=== PATIENT | female | born 1995 | race Hispanic/Latino ===

== ENCOUNTER 2017-03-02 09:45 | Emergency (ER) | payer MEDICAID, OTHER ==
[2017-03-02 10:43] VITALS: BP 109/58; PULSE 71; RESP 18; TEMP 99; O2SAT 98; BMI 29.2
--- NOTE | 2017-03-02 11:08 | ED PDOC ---
Arrival/HPI - General Chief Complaint: Suture/Staple Removal Time Seen by Provider: 03/02/17 11:05 Historian: Patient - History of Present Illness Narrative History of Present Illness (Text): 03/02/17 11:05 This 21 yo female present to this ED for staple removal. Patient denies new symptoms. Context: Home Past Medical History - Provider Review Nursing Documentation Reviewed: Yes - Cardiac Hx Cardiac Disorders: No Hx Hypertension: No - Pulmonary Hx Tuberculosis: No - Neurological Hx Neurological Disorder: Yes HX Cerebrovascular Accident: No Hx Seizures: Yes - HEENT Hx HEENT Disorder: No - Renal Hx Renal Disorder: No - Endocrine/Metabolic Hx Endocrine Disorders: Yes Hx Hypothyroidism: Yes - Hematological/Oncological Hx Cancer: No - Integumentary Hx Dermatological Disorder: No - Musculoskeletal/Rheumatological Hx Musculoskeletal Disorders: No - Gastrointestinal Hx Gastrointestinal Disorders: No - Genitourinary/Gynecological Hx Sexually Transmitted Diseases: No - Psychiatric Hx Psychophysiologic Disorder: No Hx Substance Use: No - Surgical History Hx Section: Yes - Anesthesia Hx Anesthesia: Yes Hx Anesthesia Reactions: No Hx Malignant Hyperthermia: No Family/Social History - Physician Review Nursing Documentation Reviewed: Yes Family/Social History: No Known Family HX Smoking Status: Light Smoker < 10 Cigarettes Daily Hx Alcohol Use: Yes (1/5 of [employer]) Frequency of alcohol use: Socially Hx Substance Use: No Allergies/Home Meds Allergies/Adverse Reactions: Allergies levothyroxine (generic only) Allergy (Uncoded 03/02/17 10:42) RASH Home Medications: Home Meds Medication Instructions Recorded Confirmed Levothyroxine [Synthroid] 200 mcg PO DAILY 08/25/15 03/02/17 Review of Systems - Review of Systems Constitutional: Normal. absent: Fatigue, Weight Change, Fevers, Night Sweats Eyes: Normal ENT: Normal Respiratory: Normal Cardiovascular: Normal Gastrointestinal: Normal Genitourinary Female: Normal Musculoskeletal: Normal Skin: Other (Staple removal) Neurological: Normal Endocrine: Normal Hemo/Lymphatic: Normal Psychiatric: Normal Physical Exam Vital Signs Temp Pulse Resp BP Pulse Ox 03/02/17 10:37 99 F 71 18 109/58 L 98 Temperature: Afebrile Blood Pressure: Normal Pulse: Regular Respiratory Rate: Normal Appearance: Positive for: Well-Appearing, Non-Toxic, Comfortable Pain Distress: None Mental Status: Positive for: Alert and Oriented X 3 - Systems Exam Head: Present: Normocephalic, Other (Right vertex scalp miladis x 4 . No erythema, discharge, tenderness, or dehiscense) Pupils: Present: PERRL Extroacular Muscles: Present: EOMI Conjunctiva: Present: Normal Mouth: Present: Moist Mucous Membranes Neck: Present: Normal Range of Motion Upper Extremity: Present: Normal Inspection, Normal ROM Lower Extremity: Present: Normal Inspection, Normal ROM Neurological: Present: GCS=15, CN II-XII Intact, Speech Normal, Motor Func Grossly Intact, Normal Sensory Function, Normal Cerebellar Funct, Gait Normal, Memory Normal Skin: Present: Warm, Dry, Normal Color. No: Rashes Psychiatric: Present: Alert, Oriented x 3 Medical Decision Making ED Course and Treatment: 03/02/17 11:08 Patient came for staple removal. Under sterile technique, 4 miladis were removed without complication. wound is healing well, no discharge, redness or tenderness. Re-evaluation Time: 11:08 Reassessment Condition: Re-examined, Improved Disposition/Present on Arrival - Present on Arrival Any Indicators Present on Arrival: No History of DVT/PE: No History of Uncontrolled Diabetes: No Urinary Catheter: No History of Decub. Ulcer: No History Surgical Site Infection Following: None - Disposition Have Diagnosis and Disposition been Completed?: Yes Diagnosis: Encounter for staple removal, Encounter for wound re-check Disposition: HOME/ ROUTINE Disposition Time: 11:09 Patient Plan: Discharge Patient Problems: Current Active Problems Problem Status Onset Encounter for staple removal Acute Encounter for wound re-check Acute Condition: GOOD Discharge Instructions (ExitCare): Stitches Removal (ED) Additional Instructions: Call private doctor as needed for follow up visit. Return to emergency if wound becomes painful, swelling or discharge Referrals: Ngozi Maradiaga DO [Primary Care Provider] - Follow up with primary Forms: WORK NOTE
== END 2017-03-02 11:22 | disposition home or self-care (01) ==
LOC: ED 09:45
DX: Z48.02 Encounter for removal of sutures (principal); Z51.89 Encounter for other specified aftercare

== ENCOUNTER 2017-04-13 03:36 | Emergency (ER) | payer MEDICAID, OTHER ==
[2017-04-13 03:36] VITALS: BMI 29.2
[2017-04-13 03:37] VITALS: TEMP 98.7
--- NOTE | 2017-04-13 04:15 | ED PDOC ---
Arrival/HPI - General Chief Complaint: Alcohol Ingestion Time Seen by Provider: 04/13/17 03:42 Historian: Patient - History of Present Illness Narrative History of Present Illness (Text): 04/13/17 03:56 21 year old female, whose past medical history includes hypothyroidism, was brought by EMS to the emergency department due to alcohol abuse and anxiety tonight. HPI and ROS limited due to patient being intoxicated, yelling, and uncooperative. Time/Duration: Prior to Arrival Symptom Onset: Gradual Symptom Course: Unchanged Context: Street Past Medical History - Provider Review Nursing Documentation Reviewed: Yes - Cardiac Hx Cardiac Disorders: No Hx Hypertension: No - Pulmonary Hx Tuberculosis: No - Neurological Hx Neurological Disorder: Yes HX Cerebrovascular Accident: No Hx Seizures: Yes - HEENT Hx HEENT Disorder: No - Renal Hx Renal Disorder: No - Endocrine/Metabolic Hx Endocrine Disorders: Yes Hx Hypothyroidism: Yes - Hematological/Oncological Hx Cancer: No - Integumentary Hx Dermatological Disorder: No - Musculoskeletal/Rheumatological Hx Musculoskeletal Disorders: No - Gastrointestinal Hx Gastrointestinal Disorders: No - Genitourinary/Gynecological Hx Sexually Transmitted Diseases: No - Psychiatric Hx Psychophysiologic Disorder: No Hx Substance Use: No - Surgical History Hx Section: Yes - Anesthesia Hx Anesthesia: Yes Hx Anesthesia Reactions: No Hx Malignant Hyperthermia: No Family/Social History - Physician Review Nursing Documentation Reviewed: Yes Family/Social History: No Known Family HX Smoking Status: Light Smoker < 10 Cigarettes Daily Hx Alcohol Use: Yes (1/5 of vodka tonight) Hx Substance Use: No Allergies/Home Meds Allergies/Adverse Reactions: Allergies levothyroxine (generic only) Allergy (Uncoded 03/02/17 10:42) RASH Home Medications: Home Meds Medication Instructions Recorded Confirmed Unobtainable 04/13/17 04/13/17 Review of Systems - Review of Systems Systems not reviewed;Unavailable: Intoxicated Physical Exam - Physical Exam Physical Exam Limitations: Uncooperative Vital Signs Reviewed: Yes Vital Signs Temp Pulse Resp BP Pulse Ox 04/13/17 06:37 68 17 100/53 L 98 04/13/17 03:37 98.7 F 103 H 18 134/96 H 96 Temperature: Afebrile Blood Pressure: Normal Pulse: Regular Respiratory Rate: Normal Appearance: Positive for: Well-Appearing, Non-Toxic Pain Distress: None Mental Status: Positive for: Alert and Oriented X 3, other (Yelling) - Systems Exam Head: Present: Atraumatic, Normocephalic Pupils: Present: PERRL Extroacular Muscles: Present: EOMI Conjunctiva: Present: Normal Mouth: Present: Moist Mucous Membranes Neck: Present: Normal Range of Motion Respiratory/Chest: Present: Clear to Auscultation, Good Air Exchange. No: Respiratory Distress, Accessory Muscle Use Cardiovascular: Present: Regular Rate and Rhythm. No: Murmurs Abdomen: Present: Normal Bowel Sounds. No: Tenderness, Distention, Peritoneal Signs Back: Present: Normal Inspection Upper Extremity: Present: Normal Inspection. No: Cyanosis, Edema Lower Extremity: Present: Normal Inspection. No: Edema Neurological: Present: GCS=15, CN II-XII Intact, Speech Normal Skin: Present: Warm, Dry, Normal Color. No: Rashes Psychiatric: Present: Alert, Oriented x 3, Normal Insight, Normal Concentration Medical Decision Making ED Course and Treatment: 04/13/17 04:14 Impression: 21 year old female with alcohol abuse and anxiety. Plan: -- Urinalysis -- Labs -- Reassess and disposition Prior Visits: Patient was last seen in the Emergency department on 03/02/2017 for staple removal and d/c home. pt has no s/h ideation will dc Progress Notes: 04/14/17 08:27 - Lab Interpretations Lab Results: 04/13/17 04:15 04/13/17 04:15 Lab Results 04/13/17 04:29: Urine Opiates Screen Negative, Urine Methadone Screen Negative, Ur Barbiturates Screen Negative, Ur Phencyclidine Scrn Negative, Ur Amphetamines Screen Negative, U Benzodiazepines Scrn Negative, U Oth Cocaine Metabols Negative, U Cannabinoids Screen Positive H 04/13/17 04:29: Urine Color Yellow, Urine Appearance Clear, Urine pH 6.0, Ur Specific [place] 1.015, Urine Protein Negative, Urine Glucose (UA) Negative, Urine Ketones Negative, Urine Blood Large H, Urine Nitrate Negative, Urine Bilirubin Negative, Urine Urobilinogen 0.2, Ur Leukocyte Esterase Negative, Urine RBC 1 - 3, Urine WBC 0 - 2, Ur Epithelial Cells 1 - 3, Urine Bacteria Rare , Urine HCG, Qual Negative 04/13/17 04:15: Alcohol, Quantitative 135 H 04/13/17 04:15: Salicylates < 1 L, Acetaminophen < 10.0 L 07/20/17 04:15: Sodium 145, Potassium 3.1 L, Chloride 107, Carbon Dioxide 26, Anion Gap 15, BUN 10, Creatinine 0.8, Est GFR ( Amer) > 60, Est GFR (Non- Af Amer) > 60, Random Glucose 82, Calcium 9.1, Total Bilirubin 0.5, AST 21, ALT 22, Alkaline Phosphatase 41, Total Protein 7.1, Albumin 4.3, Globulin 2.8, Albumin/Globulin Ratio 1.5 04/13/17 04:15: WBC 3.0 L D, RBC 4.36, Hgb 12.7, Hct 37.9, MCV 86.9, MCH 29.1, MCHC 33.5, RDW 12.7, Plt Count 155, MPV 11.3 H, Gran % 38.4 L, Lymph % (Auto) 47.0 H, [place] % (Auto) 10.3 H, Eos % (Auto) 4.0, Baso % (Auto) 0.3, Gran # 1.16 L , Lymph # 1.4, [place] # 0.3, Eos # 0.1, Baso # 0.01 I have reviewed the lab results: Yes - Scribe Statement Kim Lala training under Cheryl Starks. Provider Attestation: All medical record entries made by the Scribe were at my direction and personally dictated by me. I have reviewed the chart and agree that the record accurately reflects my personal performance of the history, physical exam, medical decision making, and the department course for this patient. I have also personally directed, reviewed, and agree with the discharge instructions and disposition. Disposition/Present on Arrival - Present on Arrival Any Indicators Present on Arrival: No History of DVT/PE: No History of Uncontrolled Diabetes: No Urinary Catheter: No History of Decub. Ulcer: No History Surgical Site Infection Following: None - Disposition Have Diagnosis and Disposition been Completed?: Yes Diagnosis: Alcohol intoxication Disposition: HOME/ ROUTINE Disposition Time: 06:35 Condition: GOOD Discharge Instructions (ExitCare): Abuse of Alcohol (ED) Forms: WORK NOTE
[2017-04-13 04:33] LABS: BASO # 0.01 K/mm3 (0.0-2.0); BASO % 0.3 % (0.0-3.0); EOS # 0.1 (0.0-0.7); GRAN # 1.16 (1.4-6.5); GRAN % 38.4 % (50.0-68.0); HEMOGLOBIN 12.7 gm/dL (12.0-16.0); LYMPH # 1.4 (1.2-3.4); MEAN CELL VOLUME 86.9 fL (80.0-105.0); MEAN CORPUSCULAR HEMOGLOBIN 29.1 pg (25.0-35.0); MEAN CORPUSCULAR HGB CONC 33.5 g/dl (31.0-37.0); MEAN PLATELET VOLUME 11.3 fl (7.0-11.0); MONO # 0.3 (0.1-0.6); MONO % 10.3 % (1.0-6.0); PLATELET COUNT 155 10^3/uL (120.0-450.0); RBC 4.36 10^6/uL (3.5-6.1); RED CELL DISTRIBUTION WIDTH 12.7 % (11.5-14.5)
[2017-04-13 04:38] LABS: ALB/GLOB RATIO 1.5 (1.1-1.8); ALBUMIN 4.3 g/dL (3.0-4.8); ALT/SGPT 22 U/L (7-56); AST/SGOT 21 U/L (15-39); BLOOD UREA NITROGEN 10 mg/dL (7-21); CALCIUM 9.1 mg/dL (8.4-10.5); GFR AFRICAN-AMERICAN > 60; GFR NON-AFRICAN AMERICAN > 60
[2017-04-13 04:42] LABS: SALICYLATE < 1 mg/dL (2.0-20.0)
[2017-04-13 04:44] LABS: URINE BILIRUBIN NEGATIVE (NEGATIVE); URINE BLOOD LARGE (NEGATIVE); URINE GLUCOSE (UA) NEGATIVE (NEGATIVE); URINE LEUKOCYTE ESTERASE NEGATIVE Leu/uL (NEGATIVE); URINE NITRATE NEGATIVE (NEGATIVE); URINE PROTEIN NEGATIVE mg/dL (<30 mg/dL); URINE UROBILINOGEN 0.2 E.U./dL (<1 E.U./dL)
[2017-04-13 04:51] LABS: URINE APPEARANCE CLEAR (CLEAR); URINE COLOR YELLOW (YELLOW)
[2017-04-13 05:00] LABS: HCG,QUALITATIVE URINE NEGATIVE (NEGATIVE)
[2017-04-13 05:03] LABS: URINE BACTERIA RARE (NEG); URINE WBC 0 - 2 /hpf (0-6)
[2017-04-13 05:07] LABS: BARBITURATES, UR NEGATIVE (NEGATIVE); BENZODIAZEPINES, UR NEGATIVE (NEGATIVE); OPIATES, UR NEGATIVE (NEGATIVE); PHENCYCLIDINE, UR NEGATIVE (NEGATIVE)
[2017-04-13 05:22] LABS: ACETAMINOPHEN < 10.0 ug/ml (10.0-20.0)
[2017-04-13 06:38] VITALS: BP 100/53; PULSE 68; RESP 17; O2SAT 98
== END 2017-04-13 06:34 | disposition home or self-care (01) ==
LOC: ED 03:36
DX: F10.129 Alcohol abuse with intoxication, unspecified (principal); Y90.6 Blood alcohol level of 120-199 mg/100 ml
CPT/HCPCS: 80053; 81001; 84703; 85025; 99283; G0480

== ENCOUNTER 2017-08-21 19:14 | Emergency (ER) | payer MEDICAID, OTHER ==
[2017-08-21 19:15] VITALS: BMI 29.2
[2017-08-21 20:05] VITALS: TEMP 98.3; O2SAT 100
--- NOTE | 2017-08-21 20:42 | ED PDOC ---
Arrival/HPI - General Chief Complaint: Med Refill Time Seen by Provider: 08/21/17 20:13 Historian: Patient, Family - History of Present Illness Time/Duration: Prior to Arrival Symptom Onset: Gradual Symptom Course: Unchanged Severity Level: Mild Activities at Onset: Rest Associated Symptoms (Text): 08/21/17 20:40 Patient reports that she has been hypothyroid since age 14. She takes Synthroid 200 mics daily. She has only had her Synthroid for one week out of the last 5 weeks. She is complaining of feeling tired and weak and fatigued.. She denies alcohol to me, which is different from the triage notes. She reports that she is unable to follow up with her prescribing physician as she no longer has insurance. I discussed with her that we would give her the phone number for the clinic for follow-up arrangements. Past Medical History - Cardiac Hx Cardiac Disorders: No Hx Hypertension: No - Pulmonary Hx Tuberculosis: No - Neurological Hx Neurological Disorder: Yes HX Cerebrovascular Accident: No Hx Seizures: Yes - HEENT Hx HEENT Disorder: No - Renal Hx Renal Disorder: No - Endocrine/Metabolic Hx Endocrine Disorders: Yes Hx Hypothyroidism: Yes - Hematological/Oncological Hx Cancer: No - Integumentary Hx Dermatological Disorder: No - Musculoskeletal/Rheumatological Hx Musculoskeletal Disorders: No - Gastrointestinal Hx Gastrointestinal Disorders: No - Genitourinary/Gynecological Hx Sexually Transmitted Diseases: No - Psychiatric Hx Psychophysiologic Disorder: No Hx Substance Use: No - Surgical History Hx Section: Yes - Anesthesia Hx Anesthesia: Yes Hx Anesthesia Reactions: No Hx Malignant Hyperthermia: No Family/Social History - Physician Review Nursing Documentation Reviewed: Yes Family/Social History: Unknown Family HX Smoking Status: Light Smoker < 10 Cigarettes Daily Hx Alcohol Use: Yes (1/5 of [employer]) Hx Substance Use: No Allergies/Home Meds Allergies/Adverse Reactions: Allergies levothyroxine (generic only) Allergy (Uncoded 03/02/17 10:42) RASH Home Medications: Home Meds Medication Instructions Recorded Confirmed Levothyroxine [Synthroid] 0.2 mg PO DAILY 08/21/17 08/21/17 Review of Systems - Physician Review All systems were reviewed & negative as marked: Yes - Review of Systems Constitutional: Fatigue. absent: Fevers Respiratory: Normal Cardiovascular: Normal Gastrointestinal: Normal Genitourinary Female: Normal Skin: Normal Neurological: Normal Physical Exam Vital Signs Temp Pulse Resp BP Pulse Ox 08/21/17 20:03 98.3 F 67 18 120/90 100 Temperature: Afebrile Blood Pressure: Normal Pulse: Regular Respiratory Rate: Normal Appearance: Positive for: Well-Appearing, Non-Toxic, Comfortable Pain Distress: None Mental Status: Positive for: Alert and Oriented X 3 - Systems Exam Head: Present: Atraumatic, Normocephalic Pupils: Present: PERRL Extroacular Muscles: Present: EOMI Conjunctiva: Present: Normal Neck: Present: Normal Range of Motion. No: Lymphadenopathy Respiratory/Chest: Present: Clear to Auscultation, Good Air Exchange. No: Respiratory Distress, Accessory Muscle Use Cardiovascular: Present: Regular Rate and Rhythm, Normal S1, S2. No: Murmurs Abdomen: Present: Normal Bowel Sounds. No: Tenderness, Distention, Peritoneal Signs Upper Extremity: Present: Normal Inspection. No: Cyanosis, Edema Lower Extremity: Present: Normal Inspection. No: Edema Neurological: Present: GCS=15, CN II-XII Intact, Speech Normal, Motor Func Grossly Intact Skin: Present: Warm, Dry, Normal Color. No: Rashes Psychiatric: Present: Alert, Oriented x 3, Normal Insight, Normal Concentration Medical Decision Making ED Course and Treatment: 08/21/17 22:01 TSH is greater than 100. She is unsure when the last time she had her TSH checked. She must follow-up in the clinic. Prescription for Synthroid for one week given. - Lab Interpretations Lab Results: 08/21/17 20:38 08/21/17 20:38 Lab Results 08/21/17 20:38: Sodium 139, Potassium 3.9, Chloride 104, Carbon Dioxide 27, Anion Gap 12, BUN 16, Creatinine 0.8, Est GFR ( Amer) > 60, Est GFR (Non- Af Amer) > 60, Random Glucose 68 L, Calcium 9.1, Total Bilirubin 0.4, AST 21, ALT 35, Alkaline Phosphatase 45, Total Protein 6.6, Albumin 4.0, Globulin 2.6, Albumin/Globulin Ratio 1.5 08/21/17 20:38: TSH 3rd Generation Pending, Alcohol, Quantitative < 10 08/21/17 20:38: WBC 6.3 D, RBC 4.31, Hgb 12.3, Hct 38.0, MCV 88.2, MCH 28.5, MCHC 32.4, RDW 14.1, Plt Count 177, MPV 10.9 I have reviewed the lab results: Yes Disposition/Present on Arrival - Present on Arrival Any Indicators Present on Arrival: No History of DVT/PE: No History of Uncontrolled Diabetes: No Urinary Catheter: No History of Decub. Ulcer: No History Surgical Site Infection Following: None - Disposition Have Diagnosis and Disposition been Completed?: Yes Diagnosis: Hypothyroidism Disposition: HOME/ ROUTINE Disposition Time: 22:04 Patient Plan: Discharge Condition: GOOD Discharge Instructions (ExitCare): Hypothyroidism (ED) Prescriptions: Levothyroxine Sodium [Synthroid] 200 mcg PO DAILY #10 tablet [place] [facility] [place] - Follow up with primary Forms: [facility] Connect (Cam[place]onian)
[2017-08-21 20:58] LABS: ALB/GLOB RATIO 1.5 (1.1-1.8); ALKALINE PHOSPHATASE 45 U/L (38-126); ALT/SGPT 35 U/L (7-56); AST/SGOT 21 U/L (14-36); BILIRUBIN,TOTAL 0.4 mg/dL (0.2-1.3); BLOOD UREA NITROGEN 16 mg/dL (7-21); CALCIUM 9.1 mg/dL (8.4-10.5); CARBON DIOXIDE 27 mmol/L (21-33); CHLORIDE 104 mmol/L (98-107); GFR AFRICAN-AMERICAN > 60; GLUCOSE,RANDOM 68 mg/dL (70-110); POTASSIUM 3.9 mmol/L (3.6-5.0); SODIUM 139 mmol/L (132-148); TOTAL PROTEIN 6.6 g/dL (5.8-8.3)
[2017-08-21 21:05] LABS: ALCOHOL SERUM < 10 mg/dL (0-10)
[2017-08-21 21:10] LABS: MEAN CELL VOLUME 88.2 fl (80.0-105.0); MEAN CORPUSCULAR HEMOGLOBIN 28.5 pg (25.0-35.0); MEAN CORPUSCULAR HGB CONC 32.4 g/dl (31.0-37.0); MEAN PLATELET VOLUME 10.9 fl (7.0-11.0); RED CELL DISTRIBUTION WIDTH 14.1 % (11.5-14.5); WHITE BLOOD COUNT 6.3 10^3/ul (4.5-11.0)
[2017-08-21] MEDS ORDERED: Levothyroxine 100 MCG TAB PO STA (22:03)
[2017-08-21 22:21] VITALS: BP 125/72; PULSE 70; RESP 16
== END 2017-08-21 22:18 | disposition home or self-care (01) ==
LOC: ED 19:14
DX: E03.9 Hypothyroidism, unspecified (principal); F17.210 Nicotine dependence, cigarettes, uncomplicated
CPT/HCPCS: 80053; 84443; 85027; 99283; G0480

== ENCOUNTER 2018-04-27 15:47 | Emergency (ER) | payer OTHER ==
[2018-04-27 16:05] VITALS: BMI 23.3
[2018-04-27 16:08] VITALS: RESP 18; TEMP 98.9
--- NOTE | 2018-04-27 16:20 | ED PDOC ---
Arrival/HPI - General Historian: Patient - General Chief Complaint: Upper Extremity Problem/Injury Time Seen by Provider: 04/27/18 16:09 - History of Present Illness Narrative History of Present Illness (Text): 04/27/18 16:17 22yo female with pmhx of hypothyroid who present with left shoulder pain s/p trauma. states he fell off a bed last night. Reports pain with any activity. Did not take any medication. Denies any other complaint. (Blily Wilkerson) Past Medical History - Provider Review Nursing Documentation Reviewed: Yes - Infectious Disease Hx of Infectious Diseases: None - Cardiac Hx Cardiac Disorders: No Hx Hypertension: No - Pulmonary Hx Tuberculosis: No - Neurological Hx Neurological Disorder: No HX Cerebrovascular Accident: No - HEENT Hx HEENT Disorder: No - Renal Hx Renal Disorder: No - Endocrine/Metabolic Hx Endocrine Disorders: Yes Hx Hypothyroidism: Yes - Hematological/Oncological Hx Cancer: No - Integumentary Hx Dermatological Disorder: No - Musculoskeletal/Rheumatological Hx Musculoskeletal Disorders: No - Gastrointestinal Hx Gastrointestinal Disorders: No - Genitourinary/Gynecological Hx Sexually Transmitted Diseases: No - Psychiatric Hx Psychophysiologic Disorder: No Hx Substance Use: No - Surgical History Hx Section: Yes (x1) - Anesthesia Hx Anesthesia: Yes Hx Anesthesia Reactions: No Hx Malignant Hyperthermia: No Family/Social History - Physician Review Nursing Documentation Reviewed: Yes Family/Social History: Unknown Family HX Smoking Status: Light Smoker < 10 Cigarettes Daily Hx Alcohol Use: Yes (1/5 of [employer] tonight) Hx Substance Use: No Allergies/Home Meds Allergies/Adverse Reactions: Allergies levothyroxine (generic only) Allergy (Uncoded 03/02/17 10:42) RASH Review of Systems - Physician Review All systems were reviewed & negative as marked: Yes - Review of Systems Constitutional: Normal Eyes: Normal ENT: Normal Respiratory: Normal Cardiovascular: Normal Gastrointestinal: Normal Genitourinary Female: Normal Musculoskeletal: Arthralgias (Left shoulder pain) Skin: Normal Neurological: Normal Endocrine: Normal Hemo/Lymphatic: Normal Psychiatric: Normal Physical Exam Vital Signs Reviewed: Yes Temperature: Afebrile Blood Pressure: Normal Pulse: Regular Respiratory Rate: Normal Appearance: Positive for: Well-Appearing, Non-Toxic, Comfortable Pain Distress: None Mental Status: Positive for: Alert and Oriented X 3 - Systems Exam Head: Present: Atraumatic, Normocephalic Pupils: Present: PERRL Extroacular Muscles: Present: EOMI Conjunctiva: Present: Normal Mouth: Present: Moist Mucous Membranes Neck: Present: Normal Range of Motion Respiratory/Chest: Present: Clear to Auscultation, Good Air Exchange. No: Respiratory Distress, Accessory Muscle Use Cardiovascular: Present: Regular Rate and Rhythm, Normal S1, S2. No: Murmurs Abdomen: No: Tenderness, Distention, Peritoneal Signs Back: Present: Normal Inspection Upper Extremity: Present: NORMAL PULSES, Tenderness (Left proximal shoulder), Neurovascularly Intact. No: Cyanosis, Edema, Normal ROM (Limited up to 90degree secondary to pain), Swelling, Erythema, Deformity Lower Extremity: Present: Normal Inspection. No: Edema Neurological: Present: GCS=15, CN II-XII Intact, Speech Normal Skin: Present: Warm, Dry, Normal Color. No: Rashes Psychiatric: Present: Alert, Oriented x 3, Normal Insight, Normal Concentration Vital Signs Temp Pulse Resp BP Pulse Ox 04/27/18 17:50 87 18 120/72 99 04/27/18 16:07 98.9 F 80 18 119/72 97 ED Course and Treatment: 04/28/18 00:37 Pt in ED for states history. Her pain was controlled in ED with medication Left shoulder xray -Linear vertically oriented fracture of distal clavicle. Result was DW the pt. Arm sling placed and she was DC with Tramadol and referred to ortho. (Billy Wilkerson) - RAD Interpretation Radiology Orders: 04/27/18 16:16 SHOULDER LEFT [RAD] Stat - Medication Orders Current Medication Orders: Discontinued Medications Ketorolac Tromethamine (Toradol) 60 mg IM STAT STA Stop: 04/27/18 16:17 Last Admin: 04/27/18 16:30 Dose: 60 mg NINI Pain Assessment Document 04/27/18 16:30 EQ (Rec: 04/27/18 16:30 EQ [facility] [id number] Pain Reassessment Is this a pain reassessment? No Sleep Is patient sleeping during reassessment? No Presence of Pain Presence of Pain Yes IM Administration Charges Document 04/27/18 16:30 EQ (Rec: 04/27/18 16:30 EQ [facility] [id number] Charges for Administration # of IM Administrations 1 Disposition/Present on Arrival - Present on Arrival Any Indicators Present on Arrival: No History of DVT/PE: No History of Uncontrolled Diabetes: No Urinary Catheter: No History of Decub. Ulcer: No History Surgical Site Infection Following: None - Disposition Have Diagnosis and Disposition been Completed?: Yes Disposition Time: 17:35 Patient Plan: Discharge - Disposition Diagnosis: Clavicle fracture Disposition: HOME/ ROUTINE Condition: STABLE Discharge Instructions (ExitCare): Clavicle Fracture Additional Instructions: Follow up with your Doctor/orthopedist Return to ED for any new or worsening symptoms Prescriptions: traMADol [Ultram] 50 mg PO Q6 #12 tab Referrals: Jaren Corral DO [Staff Provider] - Follow up with primary Forms: [facility] Connect (Kinyarwanda)
--- NOTE | 2018-04-27 17:18 | RAD ---
Date of service: 04/27/2018 PROCEDURE: Radiographs of the Left Shoulder HISTORY: shoulder pain COMPARISON: GoNo prior. FINDINGS: BONES: Hairline fracture distal left clavicle. The finding is marked on the study for review. JOINTS: Normal. Glenohumeral and acromioclavicular joints preserved. No osteoarthritis. SOFT TISSUES: Normal. OTHER FINDINGS: None. IMPRESSION: Linear, vertically oriented fracture distal left clavicle.
[2018-04-27 18:02] VITALS: BP 120/72; PULSE 87; O2SAT 99
== END 2018-04-27 17:50 | disposition home or self-care (01) ==
LOC: ED 15:47
DX: S42.032A Displaced fracture of lateral end of left clavicle, initial encounter for closed fracture (principal); W06.XXXA Fall from bed, initial encounter; F17.210 Nicotine dependence, cigarettes, uncomplicated; E03.9 Hypothyroidism, unspecified
CPT/HCPCS: 73030; 96372; 99283; J1885